=== PATIENT | male | born 1980 | race Two or more races ===

== ENCOUNTER 2024-10-24 09:43 | Emergency (ER) | payer OTHER ==
[~2024-10-24] VITALS: Ht 188 cm; Wt 101.2 kg
[2024-10-24 10:19] VITALS: BP 111/70; O2SAT 96
[2024-10-24 11:30] LABS: BASO % 0.4 % (0.1-1.2); EOS # 0.07 (0.04-0.54); EOS % 0.9 % (0.7-7.0); LYMPH # 1.47 (1.18-3.74); LYMPH % 19.6 % (19.3-53.1); MEAN PLATELET VOLUME 8.90 fl (9.4-12.4); MONO # 0.50 (0.24-0.82); MONO % 6.7 % (4.7-12.5); NEUT # 5.42 (1.56-6.13); NEUT % 72.1 % (34.0-71.1); RED CELL DISTRIBUTION WIDTH 18.6 % (11.6-14.4)
[2024-10-24 11:53] LABS: ALT/SGPT 119.0 U/L (12-78); AST/SGOT 122.0 U/L (15-37); BILIRUBIN TOTAL 0.63 mg/dL (0.3-1.2); BUN CREA RATIO 16.0 (7.0-25.0); CREATININE SERUM 1.04 mg/dL (0.70-1.30); GFR 77.94; GLOBULINA 4.2 G/DL (2.4-3.5); GLUCOSE FASTING 107.0 mg/dL (65-100); OSMOLALITY SERUM 283.0 MOSM/KG (275-295)
[2024-10-24] MEDS ORDERED: 8 HOUR650 MG PO (14:19)
[2024-10-24] MEDS ORDERED: TRAMADOL HCL 50 MG TABLET PO ONE (14:30)
== END 2024-10-24 14:42 | disposition home or self-care (01) ==
LOC: ER 10:43
PROVIDERS: Preventive Medicine Public Health & General Preventive Medicine
DX: M94.0 Chondrocostal junction syndrome [Tietze] (principal); F41.8 Other specified anxiety disorders; Z88.6 Allergy status to analgesic agent; K80.20 Calculus of gallbladder without cholecystitis without obstruction